=== PATIENT | male | born 1990 | race Native Hawaiian/Other Pacific Islander ===

== ENCOUNTER 2018-02-23 14:32 | Observation (INO) | payer OTHER ==
[2018-02-23] MEDS ORDERED: Sodium Chloride 0.9% 1,000 ML IV STA (15:03)
[2018-02-23 15:22] LABS: BASO % 0.4 % (0.0-2.0); EOS # 0.1 K/uL (0.0-0.7); EOS % 0.8 % (0.0-4.0); HEMOGLOBIN 16.8 g/dL (12.0-18.0); LYMPH # 2.1 K/uL (1.0-4.3); LYMPH % 22.6 % (20.0-40.0); MEAN CELL VOLUME 83.8 fl (80.0-94.0); MEAN CORPUSCULAR HEMOGLOBIN 29.4 pg (27.0-31.0); MEAN CORPUSCULAR HGB CONC 35.1 g/dL (33.0-37.0); MEAN PLATELET VOLUME 9.5 fl (7.2-11.7); MONO # 0.7 K/uL (0.0-0.8); MONO % 7.9 % (0.0-10.0); NEUT # 6.3 K/uL (1.8-7.0); NEUT % 68.3 % (50.0-75.0); NRBC % 0.1 % (0.0-0.0); RBC 5.73 Mil/uL (4.40-5.90); RED CELL DISTRIBUTION WIDTH 13.4 % (11.5-14.5); WHITE BLOOD COUNT 9.2 K/uL (4.8-10.8)
[2018-02-23 15:27] LABS: URINE BACTERIA RARE (<OCC); URINE BILIRUBIN NEGATIVE (NEGATIVE); URINE BLOOD SMALL (NEGATIVE); URINE CLARITY CLEAR (Clear); URINE COLOR YELLOW (YELLOW); URINE GLUCOSE (UA) NEG (Normal); URINE LEUKOCYTE ESTERASE NEG Leu/uL (Negative); URINE PROTEIN 30 mg/dL (NEGATIVE); URINE UROBILINOGEN 0.2-1.0 mg/dL (0.2-1.0)
[2018-02-23 15:33] LABS: ALB/GLOB RATIO 1.3 (1.0-2.1); ALBUMIN 4.7 g/dL (3.5-5.0); ALT/SGPT 66 U/L (21-72); AST/SGOT 39 U/L (17-59); BLOOD UREA NITROGEN 11 mg/dl (9-20); CALCIUM 10.3 mg/dL (8.4-10.2); GFR NON-AFRICAN AMERICAN > 60; LIPASE 172 U/L (23-300)
--- NOTE | 2018-02-23 16:37 | ED PDOC ---
HPI: Male Pain Time Seen by Provider: 02/23/18 14:53 Chief Complaint (Nursing): Male Genitourinary Chief Complaint (Provider): right flank pain History Per: Patient (27 y/o male here for moderate pain noted right back radiating to right groin associated with dysuria. No hematuria/fevers/chills noted. No h/o abd surgeries.) Past Medical History Reviewed: Historical Data, Nursing Documentation, Vital Signs Vital Signs: Last Vital Signs Temp 98.9 F 02/23/18 14:37 Pulse 112 H 02/23/18 14:37 Resp 19 02/23/18 14:37 BP 133/86 02/23/18 14:37 Pulse Ox 98 02/23/18 14:37 - Family History Family History: States: No Known Family Hx - Home Medications Home Medications: Ambulatory Orders Medication Instructions Recorded No Known Home Med 02/23/18 - Allergies Allergies/Adverse Reactions: Allergies Allergy/AdvReac Type Severity Reaction Status Date / Time No Known Allergies Allergy Verified 02/23/18 14:38 Review of Systems ROS Statement: Except As Marked, All Systems Reviewed And Found Negative Physical Exam - Reviewed Nursing Documentation Reviewed: Yes Vital Signs Reviewed: Yes - Physical Exam Appears: Positive for: Well, Non-toxic, No Acute Distress Head Exam: Positive for: ATRAUMATIC, NORMAL INSPECTION, NORMOCEPHALIC Skin: Positive for: Normal Color, Warm, DRY Eye Exam: Positive for: EOMI, Normal appearance, PERRL ENT: Positive for: Normal ENT Inspection Neck: Positive for: Normal, Painless ROM Cardiovascular/Chest: Positive for: Regular Rate, Rhythm Respiratory: Positive for: CNT, Normal Breath Sounds Gastrointestinal/Abdominal: Positive for: Normal Exam, Soft, Tenderness (right flank region tender) Back: Positive for: Normal Inspection. Negative for: L CVA Tenderness, R CVA Tenderness Extremity: Positive for: Normal ROM Neurologic/Psych: Positive for: Alert, Oriented - Laboratory Results Result Diagrams: 02/24/18 05:30 02/24/18 05:30 - ECG O2 Sat by Pulse Oximetry: 98 - Progress ED Course And Treament: KIDNEYS AND URETERS: Multiple bilateral renal calculi are present these are more numerous and larger in the right kidney. In the upper pole collecting system a 9 mm calculus is noted. In the lower pole right intrarenal collecting system and 8 mm calculus is noted. An even larger 1.2 cm right ureteral pelvic junctional calculus is present. Right hydronephrosis is associated with this. A punctate 1 to 2 mm nonobstructing left upper renal pole calculus is noted. No obstructing left renal calculi seen. No additional more distal ureteral calculi on either side noted. No bladder calculi. VASCULATURE: Left hemipelvic phlebolith noted. No aortic aneurysm. BOWEL: Unremarkable. No obstruction. No gross mural thickening. APPENDIX: Unremarkable. Normal appendix. PERITONEUM: Unremarkable. No free fluid. No free air. LYMPH NODES: Unremarkable. No enlarged lymph nodes. BLADDER: Unremarkable. REPRODUCTIVE: Unremarkable. BONES: No acute fracture. OTHER FINDINGS: None. IMPRESSION: Multiple bilateral urolithiasis these are more numerous and much more larger in size on the right side in the right intrarenal collecting system and also in the right proximal ureter at the right ureteropelvic junction. The latter as well as the intrarenal calculi air so she with right hydronephrosis. No more distal right ureteral or left ureteral calculi noted. Punctate non obstructing left upper renal pole calculus noted. No bladder calculi. flomax 0.4 mg iv x 1 dose toradol 15 mg iv x 1 dose NS 1 liter wide open patient has persistent pain uncontrolled by toradol. d/w Dr Hernandez morphine 4 mg iv x 1 dose rocephin 1 gm ivx 1 dose Medical Decision Making Medical Decision Making: case was d/w DR. Chen. As patient has fairly large renal calculi 12mm with hydronephrosis and uncontrolled pain, admission warranted for further more urgent urological eval and management. Disposition - Clinical Impression Clinical Impression: Renal calculi, Obstructive uropathy - Patient ED Disposition Is Patient to be Admitted: Yes - Disposition Disposition Time: 18:03 Condition: STABLE - Pt Status Changed To: Hospital Disposition Of: Observation
--- NOTE | 2018-02-23 16:40 | CT ---
Date of service: 02/23/2018 PROCEDURE: CT Abdomen and Pelvis without intravenous contrast HISTORY: EVALUATE FOR RENAL COLIC RIGHT SIDE COMPARISON: None. TECHNIQUE: Without contra. Contrast dose: None Radiation dose: Total exam DLP = 780 mGy-cm. This CT exam was performed using one or more of the following dose reduction techniques: Automated exposure control, adjustment of the mA and/or kV according to patient size, and/or use of iterative reconstruction technique. FINDINGS: LOWER THORAX: Posterior left lung base sub cm benign calcified granuloma noted. LIVER: Unremarkable. No gross lesion or ductal dilatation. GALLBLADDER AND BILE DUCTS: Unremarkable. PANCREAS: Unremarkable. No gross lesion or ductal dilatation. SPLEEN: Unremarkable. ADRENALS: Unremarkable. No mass. KIDNEYS AND URETERS: Multiple bilateral renal calculi are present these are more numerous and larger in the right kidney. In the upper pole collecting system a 9 mm calculus is noted. In the lower pole right intrarenal collecting system and 8 mm calculus is noted. An even larger 1.2 cm right ureteral pelvic junctional calculus is present. Right hydronephrosis is associated with this. A punctate 1 to 2 mm nonobstructing left upper renal pole calculus is noted. No obstructing left renal calculi seen. No additional more distal ureteral calculi on either side noted. No bladder calculi. VASCULATURE: Left hemipelvic phlebolith noted. No aortic aneurysm. BOWEL: Unremarkable. No obstruction. No gross mural thickening. APPENDIX: Unremarkable. Normal appendix. PERITONEUM: Unremarkable. No free fluid. No free air. LYMPH NODES: Unremarkable. No enlarged lymph nodes. BLADDER: Unremarkable. REPRODUCTIVE: Unremarkable. BONES: No acute fracture. OTHER FINDINGS: None. IMPRESSION: Multiple bilateral urolithiasis these are more numerous and much more larger in size on the right side in the right intrarenal collecting system and also in the right proximal ureter at the right ureteropelvic junction. The latter as well as the intrarenal calculi air so she with right hydronephrosis. No more distal right ureteral or left ureteral calculi noted. Punctate non obstructing left upper renal pole calculus noted. No bladder calculi.
[2018-02-23] MEDS ORDERED: Morphine 4 MG/ML VIAL IVP ONE (17:56)
[2018-02-23] MEDS ORDERED: cefTRIAXone (Rocephin) 1 gm Inj ONE (18:47)
[2018-02-23] MEDS ORDERED: Morphine 4 MG/ML VIAL ONE (18:47)
--- NOTE | 2018-02-23 19:51 | CP.PCM.HP ---
History of Present Illness - History of Present Illness History of Present Illness: 27 y/o male with no PMH presented to ER with worsening right flank pain for the last 2 days , sharp, 10/10 , radiating to his back.He denies any fever, chills, hematuria . Complains of minimal dysuria. Denies any prior similar episodes . Pain improved minimally with advil PO. Denies any nausea / vomiting / cough / chest pain / SOB / palpitations/ PND/ orthopnea/ constipation or diarrhea. ROS ; 14 point review of system negative except above Allergies ; NKDA PMH ; None Medications; Advil PRN Surgery : None Family history ; none Social history ; lives in [place] , single, does not work, denies smoking ETOH or drug abuse PMD ; None Code status ; Full Surrogate decision maker Aungissel Perkins [phone] Present on Admission - Present on Admission Any Indicators Present on Admission: No Review of Systems - Review of Systems All systems: reviewed and no additional remarkable complaints except Past Patient History - Infectious Disease Hx of Infectious Diseases: None - Tetanus Immunizations Tetanus Immunization: Unknown - Past Medical History & Family History Past Medical History?: No Past Family History: Reviewed and not pertinent - Past Social History Smoking Status: Never Smoked Chewing Tobacco Use: No Cigar Use: No Alcohol: None Drugs: Denies Home Situation {Lives}: Alone - PSYCHIATRIC Hx Substance Use: No Meds Allergies/Adverse Reactions: Allergies Allergy/AdvReac Type Severity Reaction Status Date / Time No Known Allergies Allergy Verified 02/23/18 14:38 Physical Exam - Constitutional Appears: Non-toxic, Toxic, No Acute Distress - Head Exam Head Exam: ATRAUMATIC, NORMAL INSPECTION, NORMOCEPHALIC - Eye Exam Eye Exam: EOMI, Normal appearance, PERRL Pupil Exam: NORMAL ACCOMODATION - ENT Exam ENT Exam: Mucous Membranes Moist, Normal Exam - Neck Exam Neck exam: Positive for: Full Rom, Normal Inspection - Respiratory Exam Respiratory Exam: Clear to Auscultation Bilateral, NORMAL BREATHING PATTERN. absent: Rales, Rhonchi, Wheezes - Cardiovascular Exam Cardiovascular Exam: REGULAR RHYTHM, RRR, +S1, +S2. absent: JVD - GI/Abdominal Exam GI & Abdominal Exam: Normal Bowel Sounds, Soft, Tenderness (right costophrenic ) . absent: Distended, Guarding, Rebound - Rectal Exam Rectal Exam: Deferred - Extremities Exam Extremities exam: Positive for: normal capillary refill, normal inspection, pedal pulses present. Negative for: calf tenderness, pedal edema - Back Exam Back exam: CVA tenderness (R), NORMAL INSPECTION - Neurological Exam Neurological exam: Alert, CN II-XII Intact, Oriented x3, Reflexes Normal - Psychiatric Exam Psychiatric exam: Normal Affect, Normal Mood - Skin Skin Exam: Dry, Normal Color, Warm Results - Vital Signs Recent Vital Signs: Last Vital Signs Temp 97.6 F 02/23/18 18:57 Pulse 72 02/23/18 18:57 Resp 19 02/23/18 18:57 BP 134/90 02/23/18 18:57 Pulse Ox 97 02/23/18 18:57 - Labs Result Diagrams: 02/23/18 15:13 02/23/18 15:13 Labs: Laboratory Results - last 24 hr 02/23/18 02/23/18 02/23/18 15:13 15:13 15:13 WBC 9.2 RBC 5.73 Hgb 16.8 Hct 48.0 MCV 83.8 MCH 29.4 MCHC 35.1 RDW 13.4 Plt Count 228 MPV 9.5 Neut % (Auto) 68.3 Lymph % (Auto) 22.6 [place] % (Auto) 7.9 Eos % (Auto) 0.8 Baso % (Auto) 0.4 Neut # (Auto) 6.3 Lymph # (Auto) 2.1 [place] # (Auto) 0.7 Eos # (Auto) 0.1 Baso # (Auto) 0.0 Sodium 142 Potassium 4.2 Chloride 105 Carbon Dioxide 27 Anion Gap 14 BUN 11 Creatinine 0.9 Est GFR ( Amer) > 60 Est GFR (Non-Af Amer) > 60 Random Glucose 91 Calcium 10.3 H Total Bilirubin 0.8 AST 39 ALT 66 Alkaline Phosphatase 70 Total Protein 8.4 H Albumin 4.7 Globulin 3.7 Albumin/Globulin Ratio 1.3 Lipase 172 Urine Color Yellow Urine Clarity Clear Urine pH 7.0 Ur Specific [place] 1.018 Urine Protein 30 Urine Glucose (UA) Neg Urine Ketones Negative Urine Blood Small Urine Nitrate Negative Urine Bilirubin Negative Urine Urobilinogen 0.2-1.0 Ur Leukocyte Esterase Neg Urine RBC (Auto) 13 H Urine Microscopic WBC 5 Urine Bacteria Rare - Imaging and Cardiology CT scan - abdomen Additional comment: Multiple bilateral urolithiasis these are more numerous and much more larger in size on the right side in the right intrarenal collecting system and also in the right proximal ureter at the right ureteropelvic junction. The latter as well as the intrarenal calculi air so she with right hydronephrosis. No more distal right ureteral or left ureteral calculi noted. Punctate non obstructing left upper renal pole calculus noted. No bladder calculi. Assessment & Plan - Assessment and Plan (Free Text) Assessment: 27 y/o male with no PMH presented to ER with worsening right flank pain for the last 2 days , sharp, 10/10 , radiating to his back.He denies any fever, chills, hematuria . Complains of minimal dysuria and decreased urination. Denies any prior similar episodes . Pain improved minimally with advil PO. Patient afebrile in ER with normal WBC count 9 K, normal BUN/Cr , UA with rare bacteria, no blood no LE or nitrites or WBC CT abdomen and pelvis showed multiple bilateral renal calculi more on the right with a large 1.2 cm right Ureteral pelvic junction stone and hydronephrosis. 1. Renal Colic with multiple bilateral calculi and obstructing right ureteropelvic juction stone 1.2 cm in size and hydronephrosis Will place patient under observation in med/surg Start IVF toradol and Morphine PRN for pain management Flomax 0.4 mg urology consult with Dr. Chen appreciated . Plan for cystoscopy with Stent placement in AM Keep NPO past midnight
[2018-02-23] MEDS: Sodium Chloride 0.9% 1,000 ML IV SCH (21:11)
[2018-02-24 06:30] LABS: BASO % 0.3 % (0.0-2.0); EOS # 0.1 K/uL (0.0-0.7); EOS % 2.2 % (0.0-4.0); HEMOGLOBIN 15.1 g/dL (12.0-18.0); LYMPH % 31.1 % (20.0-40.0); MEAN CELL VOLUME 85.1 fl (80.0-94.0); MEAN CORPUSCULAR HEMOGLOBIN 28.6 pg (27.0-31.0); MEAN CORPUSCULAR HGB CONC 33.6 g/dL (33.0-37.0); MEAN PLATELET VOLUME 9.3 fl (7.2-11.7); MONO # 0.5 K/uL (0.0-0.8); MONO % 7.4 % (0.0-10.0); NEUT # 3.7 K/uL (1.8-7.0); NRBC % 0.1 % (0.0-0.0); RBC 5.27 Mil/uL (4.40-5.90); RED CELL DISTRIBUTION WIDTH 13.6 % (11.5-14.5); WHITE BLOOD COUNT 6.3 K/uL (4.8-10.8)
[2018-02-24 06:39] LABS: PARTIAL THROMBOPLASTIN TIME 34.6 Seconds (25.6-37.1)
[2018-02-24 06:42] LABS: BLOOD UREA NITROGEN 13 mg/dl (9-20); CALCIUM 8.9 mg/dL (8.4-10.2); GFR NON-AFRICAN AMERICAN > 60
[2018-02-24] MEDS ORDERED: Pantoprazole 40 mg EC Tab PO SCH (09:00)
[2018-02-24] MEDS: Sodium Chloride 0.9% 1,000 ML IV SCH ×2 (09:14→16:47)
--- NOTE | 2018-02-24 14:25 | CP.PCM.PN ---
Subjective - Date & Time of Evaluation Date of Evaluation: 02/24/18 Time of Evaluation: 14:23 - Subjective Subjective: Pt examined yesterday in ER for cysto and stent insertion today pt aware that will need eswl and [facility] does not have that service . Discussed with Hospatilist Gustavo Objective - Vital Signs/Intake and Output Vital Signs (last 24 hours): Temp Pulse Resp BP Pulse Ox 97.6 F 86 20 151/73 H 99 02/24/18 08:40 02/24/18 08:40 02/24/18 08:40 02/24/18 08:40 02/24/18 08:40 - Medications Medications: Current Medications Acetaminophen (Tylenol 325mg Tab) 650 mg PO Q6 PRN PRN Reason: Fever >100.4 F Sodium Chloride (Sodium Chloride 0.9%) 1,000 mls @ 100 mls/hr IV .Q10H [facility] Last Admin: 02/24/18 09:14 Dose: Not Given Ceftriaxone Sodium 1 gm/ (Sodium Chloride) 100 mls @ 100 mls/hr IVPB DAILY [facility] PRN Reason: Protocol Last Admin: 02/24/18 09:14 Dose: 100 mls/hr Ketorolac Tromethamine (Toradol) 30 mg IVP Q6 PRN PRN Reason: Pain, severe (8-10) Last Admin: 02/24/18 09:22 Dose: 30 mg Ondansetron HCl (Zofran Inj) 4 mg IVP Q6 PRN PRN Reason: Nausea/Vomiting Pantoprazole Sodium (Protonix Ec Tab) 40 mg PO DAILY [facility] Last Admin: 02/24/18 09:14 Dose: Not Given Tamsulosin HCl (Flomax) 0.4 mg PO DAILY [facility] Last Admin: 02/24/18 09:14 Dose: Not Given - Labs Labs: 02/24/18 05:30 02/24/18 05:30 PT 11.0 Seconds (9.8-13.1) 02/24/18 05:30 INR 1.0 02/24/18 05:30 APTT 34.6 Seconds (25.6-37.1) 02/24/18 05:30
[2018-02-24] MEDS ORDERED: cefTRIAXone (Rocephin) 1 gm Inj ONE (17:32)
[2018-02-24] MEDS ORDERED: Lidocaine 2% Jelly (Uro-Jet) ONE (17:32)
[2018-02-24] MEDS ORDERED: Benzoin Compund Tincture 30 ML TP ONE (17:32)
[2018-02-24] MEDS ORDERED: Propofol 10 mg/ml Inj (20 ML) ONE (17:56)
[2018-02-24] MEDS ORDERED: Midazolam 2 MG/2 ML VIAL ONE (17:56)
[2018-02-24] MEDS ORDERED: Lactated Ringer's 1,000 ML IV ONE (18:30)
--- NOTE | 2018-02-24 18:47 | CP.PCM.PN ---
Subjective - Date & Time of Evaluation Date of Evaluation: 02/24/18 Time of Evaluation: 10:00 - Subjective Subjective: patient was seen and examined bedside this AM . feeling better .still with some right flank pain but better controlled. Hemodynamically stable, afebrile. No acute issues overnight denies any hematuria and voiding difficulty NPO today for cystoscopy with stent placement Objective - Vital Signs/Intake and Output Vital Signs (last 24 hours): Temp Pulse Resp BP Pulse Ox 98.2 F 70 20 128/84 99 02/24/18 16:22 02/24/18 16:22 02/24/18 16:22 02/24/18 16:22 02/24/18 16:22 Intake and Output: 02/24/18 02/24/18 06:59 18:59 Intake Total 400 Balance 400 - Medications Medications: Current Medications Acetaminophen (Tylenol 325mg Tab) 650 mg PO Q6 PRN PRN Reason: Fever >100.4 F Sodium Chloride (Sodium Chloride 0.9%) 1,000 mls @ 100 mls/hr IV .Q10H [facility] Last Admin: 02/24/18 16:47 Dose: Not Given Ceftriaxone Sodium 1 gm/ (Sodium Chloride) 100 mls @ 100 mls/hr IVPB DAILY [facility] PRN Reason: Protocol Last Admin: 02/24/18 09:14 Dose: 100 mls/hr Ketorolac Tromethamine (Toradol) 30 mg IVP Q6 PRN PRN Reason: Pain, severe (8-10) Last Admin: 02/24/18 15:36 Dose: 30 mg Ondansetron HCl (Zofran Inj) 4 mg IVP Q6 PRN PRN Reason: Nausea/Vomiting Pantoprazole Sodium (Protonix Ec Tab) 40 mg PO DAILY [facility] Last Admin: 02/24/18 09:14 Dose: Not Given Tamsulosin HCl (Flomax) 0.4 mg PO DAILY [facility] Last Admin: 02/24/18 09:14 Dose: Not Given - Labs Labs: 02/24/18 05:30 02/24/18 05:30 PT 11.0 Seconds (9.8-13.1) 02/24/18 05:30 INR 1.0 02/24/18 05:30 APTT 34.6 Seconds (25.6-37.1) 02/24/18 05:30 - Constitutional Appears: Non-toxic, No Acute Distress - Head Exam Head Exam: ATRAUMATIC, NORMAL INSPECTION, NORMOCEPHALIC - Eye Exam Eye Exam: EOMI, Normal appearance, PERRL Pupil Exam: NORMAL ACCOMODATION - ENT Exam ENT Exam: Mucous Membranes Moist, Normal Exam - Neck Exam Neck Exam: Full ROM, Normal Inspection - Respiratory Exam Respiratory Exam: Clear to Ausculation Bilateral, NORMAL BREATHING PATTERN. absent: Rales, Rhonchi, Wheezes - Cardiovascular Exam Cardiovascular Exam: REGULAR RHYTHM, RRR, +S1, +S2. absent: JVD - GI/Abdominal Exam GI & Abdominal Exam: Soft, Normal Bowel Sounds. absent: Distended, Guarding, Rebound - Rectal Exam Rectal Exam: Deferred - Extremities Exam Extremities Exam: Full ROM, Normal Capillary Refill, Normal Inspection - Back Exam Back Exam: NORMAL INSPECTION - Neurological Exam Neurological Exam: Alert, Awake, CN II-XII Intact, Oriented x3 - Psychiatric Exam Psychiatric exam: Normal Affect - Skin Skin Exam: Dry, Intact, Normal Color, Warm Assessment and Plan - Assessment and Plan (Free Text) Assessment: 27 y/o male with no PMH presented to ER with worsening right flank pain for the last 2 days , sharp, 10/10 , radiating to his back.He denied any fever, chills, hematuria . Complained of minimal dysuria and decreased urination. Patient afebrile in ER with normal WBC count 9 K, normal BUN/Cr , UA with rare bacteria, no blood no LE or nitrites or WBC CT abdomen and pelvis showed multiple bilateral renal calculi more on the right with a large 1.2 cm right Ureteral pelvic junction stone and hydronephrosis. Patient admitted for renal colic with obstructing right ureteropelvic stone and urology consulted . Plan for stent placement today 1. Renal Colic with multiple bilateral calculi and obstructing right ureteropelvic juction stone 1.2 cm in size and hydronephrosis felling better continue IVF toradol and Morphine PRN for pain management Flomax 0.4 mg urology consult with Dr. Gustavo kowalski . Plan for cystoscopy with Stent placement today . If stabl epost procedure will discharge home patient will need follow up with urology and lithotripsy center as outpating on Rocephin prophylactically
--- NOTE | 2018-02-24 19:04 | PCM.SURG1 ---
Surgeon's Initial Post Op Note - Surgeon's Notes Surgeon: Gustavo Product Safety Professional: NATALIE Type of Anesthesia: General LMA Anesthesia Administered By: Staff Pre-Operative Diagnosis: Rupj calculi and colic with hydro Operative Findings: same Post-Operative Diagnosis: same Operation Performed: Cysto and stent insertion Specimen/Specimens Removed: NA Estimated Blood Loss: EBL {In ML}: 0 Blood Products Given: N/A Drains Used: No Drains Post-Op Condition: Good Date of Surgery/Procedure: 02/24/18 Time of Surgery/Procedure: 19:05 (Discussed with DR Cruz)
[2018-02-24] MEDS: HYDROmorphone 0.5 mg/0.5 ml ISec IVP PRN ×3 (19:30→20:00)
[2018-02-24 21:44] VITALS: O2SAT 98
--- NOTE | 2018-02-25 03:59 | OP ---
PROCEDURE DATE: 02/24/2018 PREOPERATIVE DIAGNOSES: Right renal colic and right hydronephrosis secondary to right ureteropelvic junction calculi with multiple smaller calculi in the collecting system and nonobstructing stones on the left side. PROCEDURE: Cystoscopy, insertion of right urethral stent. FINDINGS: Multiple calculi and right UPJ calculi with hydro. DESCRIPTION OF PROCEDURE: Prior to the procedure, the patient was asked to sign a detailed informed consent. He was aware that this procedure will only unblock the kidney and he will need further lithotripsy (ESWL). He is aware that ESWL is not available at this facility and his [facility] will not cover ESWL at another facility. He agreed to proceed with the procedure and was brought into the room, a time-out was taken according to the rules and regulations of [facility]. The CAT scan report was reviewed. The patient's symptoms were reviewed with him and the x-rays were reviewed, all confirming right sided pain due to a right UPJ calculi. The patient was given additional prophylactic antibiotics, anesthetized and draped and prepped in the usual manner. A 2% Xylocaine jelly was instilled per urethra. The patient was in the lithotomy position. He was cystoscoped with #21 Storz panendoscope. The pendulous, membranous urethra was normal. The prostatic urethra showed minimal hypertrophy. The bladder was entered atraumatically. There was no urothelial tumors or stones. The left urethral orifice effluxed clear urine and the right urethral orifice did not efflux urine. A guidewire was passed up the ureter and under fluoroscopic control manipulated pass the obstructing stone. Once the curl was achieved in the renal pelvis, a 6-Guyanese double J-stent was passed over the wire and positioned with the distal end in the renal pelvis and the proximal end in the bladder with one good curl. The patient tolerated this very well. The bladder was drained. The patient was sent to the recovery room in good condition. The findings were conveyed to Dr. Cruz by phone and Dr. Cruz advised to follow up in her office in approximately 2 to 3 weeks for arrangements for lithotripsy. Dimas Chen MD
--- NOTE | 2018-02-25 04:09 | CON ---
DATE: 02/23/2018 TIME: Approximately 8 p.m. in the emergency room. CHIEF COMPLAINT: Right flank pain. HISTORY: The patient says he has been having severe flank pain for several days and he came to the emergency room. He underwent CAT scan of the abdomen and pelvis and the CAT scan shows bilateral renal calculi and a right UPJ obstructing calculi with multiple smaller calculi's in the right peripheral calyces. The patient denies prior history of renal calculi. He has no history of hematuria, dysuria, no previous urinary tract infection. He denies vomiting. REVIEW OF SYSTEMS: Respiratory, cardiovascular, GI, musculoskeletal, vascular, neurological, social and family, orthopedic and integument systems are negative in their history. PHYSICAL EXAMINATION: VITAL SIGNS: Within normal limits. HEAD, EARS, EYES, NOSE AND THROAT: Within normal limits. NECK: Supple. There is no bruits, nodes or masses. CHEST: Clear bilaterally. There is no rales or rhonchi. ABDOMEN: Soft and nontender. Slight right CVA tenderness. There is no guarding or rebound. GENITALIA: Testicles, epididymis and cord are normal. The patient is uncircumcised. EXTREMITIES: Normal. RECTAL: Declined by the patient. LABORATORY DATA: I have also reviewed the x-ray reports and laboratory data. IMPRESSION: My impression is right obstructing ureteropelvic junction calculi. PLAN: I discussed with the patient and Dr. Cruz who was in the emergency room. The patient will be admitted and a stent will be placed tomorrow. The patient is fully aware that there is no lithotripsy available at [facility] and [place] [facility] will not cover the patient's lithotripsy. Dimas Chen MD
[2018-02-25 05:55] LABS: MEAN CELL VOLUME 84.3 fl (80.0-94.0); MEAN CORPUSCULAR HEMOGLOBIN 28.3 pg (27.0-31.0); MEAN CORPUSCULAR HGB CONC 33.6 g/dL (33.0-37.0); RBC 5.29 Mil/uL (4.40-5.90); RED CELL DISTRIBUTION WIDTH 13.4 % (11.5-14.5); WHITE BLOOD COUNT 7.7 K/uL (4.8-10.8)
[2018-02-25 06:28] LABS: BLOOD UREA NITROGEN 14 mg/dl (9-20)
[2018-02-25 06:29] LABS: CALCIUM 9.4 mg/dL (8.4-10.2); GFR NON-AFRICAN AMERICAN > 60
[2018-02-25 08:08] VITALS: BP 121/79; PULSE 75; RESP 19; TEMP 97.8
--- NOTE | 2018-02-25 08:19 | RAD ---
Date of service: 02/24/2018 PROCEDURE: Intraoperative Fluoroscopy. HISTORY: FLUOROSCOPY FINDINGS: Fluoroscopic assistance was provided for right ureteral stent deployment. Please refer to the operative report from CHASITY Spangler. 0.8 seconds of fluoro time was utilized.
--- NOTE | 2018-02-25 08:34 | CP.PCM.DIS ---
Provider - Provider Date of Admission: 02/23/18 18:03 Attending physician: Lissy Cruz MD Primary care physician: None Consults: urology consult Time Spent in preparation of Discharge (in minutes): 10 Hospital Course - Lab Results Lab Results: Micro Results 02/23/18 15:13 Urine Urine Culture - Final No Growth (<1,000 CFU/ML) Most Recent Lab Values WBC 7.7 K/uL (4.8-10.8) 02/25/18 05:35 RBC 5.29 Mil/uL (4.40-5.90) 02/25/18 05:35 Hgb 15.0 g/dL (12.0-18.0) 02/25/18 05:35 Hct 44.6 % (35.0-51.0) 02/25/18 05:35 MCV 84.3 fl (80.0-94.0) 02/25/18 05:35 MCH 28.3 pg (27.0-31.0) 02/25/18 05:35 MCHC 33.6 g/dL (33.0-37.0) 02/25/18 05:35 RDW 13.4 % (11.5-14.5) 02/25/18 05:35 Plt Count 191 K/uL (130-400) 02/25/18 05:35 MPV 9.3 fl (7.2-11.7) 02/24/18 05:30 Neut % (Auto) 59.0 % (50.0-75.0) 02/24/18 05:30 Lymph % (Auto) 31.1 % (20.0-40.0) 02/24/18 05:30 Morrill % (Auto) 7.4 % (0.0-10.0) 02/24/18 05:30 Eos % (Auto) 2.2 % (0.0-4.0) 02/24/18 05:30 Baso % (Auto) 0.3 % (0.0-2.0) 02/24/18 05:30 Neut # (Auto) 3.7 K/uL (1.8-7.0) 02/24/18 05:30 Lymph # (Auto) 2.0 K/uL (1.0-4.3) 02/24/18 05:30 Morrill # (Auto) 0.5 K/uL (0.0-0.8) 02/24/18 05:30 Eos # (Auto) 0.1 K/uL (0.0-0.7) 02/24/18 05:30 Baso # (Auto) 0.0 K/uL (0.0-0.2) 02/24/18 05:30 PT 11.0 Seconds (9.8-13.1) 02/24/18 05:30 INR 1.0 02/24/18 05:30 APTT 34.6 Seconds (25.6-37.1) 02/24/18 05:30 Sodium 140 mmol/l (132-148) 02/25/18 05:35 Potassium 4.7 MMOL/L (3.6-5.0) 02/25/18 05:35 Chloride 102 mmol/L (98-107) 02/25/18 05:35 Carbon Dioxide 28 mmol/L (22-30) 02/25/18 05:35 Anion Gap 15 (10-20) 02/25/18 05:35 BUN 14 mg/dl (9-20) 02/25/18 05:35 Creatinine 0.8 mg/dl (0.8-1.5) 02/25/18 05:35 Est GFR ( Amer) > 60 02/25/18 05:35 Est GFR (Non-Af Amer) > 60 02/25/18 05:35 Random Glucose 92 mg/dL (75-110) 02/25/18 05:35 Calcium 9.4 mg/dL (8.4-10.2) 02/25/18 05:35 Total Bilirubin 0.8 mg/dl (0.2-1.3) 02/23/18 15:13 AST 39 U/L (17-59) 02/23/18 15:13 ALT 66 U/L (21-72) 02/23/18 15:13 Alkaline Phosphatase 70 U/L (38-126) 02/23/18 15:13 Total Protein 8.4 G/DL (6.3-8.2) H 02/23/18 15:13 Albumin 4.7 g/dL (3.5-5.0) 02/23/18 15:13 Globulin 3.7 gm/dL (2.2-3.9) 02/23/18 15:13 Albumin/Globulin Ratio 1.3 (1.0-2.1) 02/23/18 15:13 Lipase 172 U/L (23-300) 02/23/18 15:13 Urine Color Yellow (YELLOW) 02/23/18 15:13 Urine Clarity Clear (Clear) 02/23/18 15:13 Urine pH 7.0 (5.0-8.0) 02/23/18 15:13 Ur Specific [place] 1.018 (1.003-1.030) 02/23/18 15:13 Urine Protein 30 mg/dL (NEGATIVE) 02/23/18 15:13 Urine Glucose (UA) Neg mg/dL (Normal) 02/23/18 15:13 Urine Ketones Negative mg/dL (NEGATIVE) 02/23/18 15:13 Urine Blood Small (NEGATIVE) 02/23/18 15:13 Urine Nitrate Negative (NEGATIVE) 02/23/18 15:13 Urine Bilirubin Negative (NEGATIVE) 02/23/18 15:13 Urine Urobilinogen 0.2-1.0 mg/dL (0.2-1.0) 02/23/18 15:13 Ur Leukocyte Esterase Neg Jaziel/uL (Negative) 02/23/18 15:13 Urine RBC (Auto) 13 /hpf (0-3) H 02/23/18 15:13 Urine Microscopic WBC 5 /hpf (0-5) 02/23/18 15:13 Urine Bacteria Rare (<OCC) 02/23/18 15:13 - Hospital Course Hospital Course: 27 y/o male with no PMH presented to ER with worsening right flank pain for the last 2 days , sharp, 10/10 , radiating to his back.He denied any fever, chills, hematuria . Complained of minimal dysuria and decreased urination. Patient was afebrile in ER with normal WBC count 9 K, normal BUN/Cr , UA with rare bacteria, no blood no LE or nitrites or WBC CT abdomen and pelvis showed multiple bilateral renal calculi more on the right with a large 1.2 cm right Ureteral pelvic junction stone and hydronephrosis. Patient was admitted for renal colic with obstructing right ureteropelvic stone and urology consulted .He underwent cystoscopy on 02/24 with J stent placement to the right. post procedure patient doing well. hemodynamically stable, [id number]. No acute issues overnight Cleared for discharge home by urology. patient will need follow up with Dr. chen in the office i n 2 weeks. Will need stent removal and lithothripsy as out patient d/c on percoset PRN for pain and Flomax PO Will d/c on Cipro PO for 5 days prophylactically COUNSELLED PATIENT ON SIDE EFFECTS OF NARCOTICS 1. Renal Colic with multiple bilateral calculi and obstructing right ureteropelvic juction stone 1.2 cm in size and hydronephrosis no UTI Discharge Exam - Head Exam Head Exam: ATRAUMATIC, NORMAL INSPECTION, NORMOCEPHALIC - Eye Exam Eye Exam: EOMI, Normal appearance, PERRL Pupil Exam: NORMAL ACCOMODATION - ENT Exam ENT Exam: Mucous Membranes Moist, Normal Exam - Neck Exam Neck exam: Full Rom, Normal Inspection - Respiratory Exam Respiratory Exam: Clear to PA & Lateral, NORMAL BREATHING PATTERN. absent: Rales, Rhonchi, Wheezes - Cardiovascular Exam Cardiovascular Exam: REGULAR RHYTHM, RRR, +S1, +S2. absent: JVD - GI/Abdominal Exam GI & Abdominal Exam: Normal Bowel Sounds, Soft. absent: Distended, Guarding, Rebound - Rectal Exam Rectal Exam: Deferred - Extremities Exam Extremities exam: full ROM, normal inspection, pedal pulses present - Back Exam Back exam: NORMAL INSPECTION - Neurological Exam Neurological exam: Alert, CN II-XII Intact, Oriented x3, Reflexes Normal - Psychiatric Exam Psychiatric exam: Normal Affect, Normal Mood - Skin Skin Exam: Dry, Intact, Normal Color, Warm Discharge Plan - Discharge Medications Prescriptions: Ciprofloxacin HCl [Cipro] 500 mg PO BID #10 tab oxyCODONE/Acetaminophen [Percocet 5/325 mg Tab] 1 tab PO Q6 PRN #20 tab PRN Reason: Pain, Severe (8-10) Tamsulosin [Flomax] 0.4 mg PO DAILY #21 cap - Follow Up Plan Condition: STABLE Disposition: HOME/ ROUTINE Patient education suggested?: Yes Instructions: Kidney Stones (DC) Additional Instructions: Please follow up with Dr. Sanchez on 03/04/18 at 1:20 pm at [facility] Stent placement done - need to follow up with Dr. Chen in 1-2 weeks Referrals: [facility] [Provider Group] Dmias Chen Jr., MD [Staff Provider] -
== END 2018-02-25 09:10 | disposition home or self-care (01) ==
LOC: H.ER 14:32 → H.ERHOLD 18:03 → H.MEDSURG1 20:40
PROVIDERS: ADMIT Hospitalist; ATTEND Hospitalist
DX: N13.2 Hydronephrosis with renal and ureteral calculous obstruction (principal)
CPT/HCPCS: 36415; 52282; 74176; 80048; 80053; 81003; 83690; 85025; 85027; 85610; 85730; 87086; 96361; 96374; 96375; 96376; 99285; C2617; G0378; J0696; J1170; J1885; J2001; J2250; J2270; J2405; J2704; J3010; J7030; J7120

== ENCOUNTER 2018-04-25 11:01 | Day surgery (SDC) | payer SELFPAY ==
[2018-04-22 10:33] VITALS: BMI 31.0
[2018-04-25] MEDS ORDERED: Lactated Ringer's 1,000 ML IV ONE (12:05)
[2018-04-25] MEDS ORDERED: Propofol 10 mg/ml Inj (20 ML) ONE (13:09)
[2018-04-25] MEDS ORDERED: Midazolam 2 MG/2 ML VIAL ONE (13:09)
[2018-04-25] MEDS ORDERED: Lidocaine 2% Jelly (5 ml) TOP ONE (13:10)
[2018-04-25] MEDS ORDERED: Lidocaine 1% 5ml Abboject ONE (13:10)
[2018-04-25] MEDS ORDERED: ceFAZolin IV 1 gm in Dextrose 1 GM/50 ML BAG IVPB ONE (13:41)
--- NOTE | 2018-04-25 14:00 | PCM.SURG1 ---
Surgeon's Initial Post Op Note - Surgeon's Notes Surgeon: Gustavo Associate Drafter: NATALIE Type of Anesthesia: General LMA Anesthesia Administered By: Staff Pre-Operative Diagnosis: R ureteral stent and multiple Renal calculi. Operative Findings: same Post-Operative Diagnosis: same Operation Performed: Cysto removal of stent Specimen/Specimens Removed: stent Estimated Blood Loss: EBL {In ML}: 0 Blood Products Given: N/A Drains Used: No Drains Post-Op Condition: Good Date of Surgery/Procedure: 04/25/18 Time of Surgery/Procedure: 14:01
[2018-04-25] MEDS ORDERED: Lactated Ringer's 1,000 ML IV SCH (14:15)
[2018-04-25 15:32] VITALS: RESP 18
[2018-04-25 17:01] VITALS: BP 111/79; PULSE 73; TEMP 97.5; O2SAT 100
--- NOTE | 2018-04-26 01:19 | OP ---
PROCEDURE DATE: 04/25/2018 PREOPERATIVE DIAGNOSIS: Right ureteral stent and retained renal calculi, post lithotripsy. POSTOPERATIVE DIAGNOSIS: Right ureteral stent and retain renal calculi, post lithotripsy. PROCEDURE: Cystoscopy and removal of stent. FINDINGS: Multiple calculi in the renal collecting system and ureteral stent. DESCRIPTION OF PROCEDURE: The patient was apprised of the fact that there were multiple stones left in the periphery of the kidney which should be treated with lithotripsy before removing the stent. The patient wants the stent removed, he is aware that these stones may move and cause obstruction again. He was given a detail informed consent about the risk and complications of premature removal of stent and insisted to proceed. He signed the consent, was willing to accept the risk, was brought into the room, draped and prepped in usual manner. A 2% Xylocaine jelly was instilled per urethra, and the patient was cystoscoped with a #21 Storz panendoscope. The pendulous membranes of the urethra were normal. The prostatic urethra showed minimal hypertrophy. The bladder was entered atraumatically. The stent protruding from the right ureteral orifice was grasped and removed. The patient tolerated this procedure well. He was sent to recovery room in good condition. The patient was told to return to the ER if he has significant colic or followup in our office in 1 month, whichever occurs first. Dimas Chen MD
== END 2018-04-25 17:30 | disposition home or self-care (01) ==
LOC: H.OPSURG 11:01
PROVIDERS: ATTEND Urology
DX: N20.0 Calculus of kidney (principal); M54.9 Dorsalgia, unspecified
CPT/HCPCS: 52310; 88304; J0690; J1885; J2250; J2704; J2765; J3010; J7120